=== PATIENT | female | born 1985 | race Caucasian/White ===

== ENCOUNTER 2019-01-10 19:45 | Emergency (ER) | payer OTHER ==
[2019-01-10] MEDS ORDERED: AMOXIL/CLAVULANATE 400/5 ML PDR PO ONE (21:34)
[2019-01-10] MEDS ORDERED: APAP/HYDROCODONE 1 EACH TABLET PO PRN (21:36)
[2019-01-10] MEDS ORDERED: APAP/HYDROCODONE 1 EACH TABLET ONE (21:48)
[2019-01-10] MEDS ORDERED: AUGMENTIN(FRIDGE) 400 MG/5 ML ONE (21:49)
== END 2019-01-10 22:00 | disposition home or self-care (01) | DRG 159 ==
LOC: ED 19:45
DX: K08.89 Other specified disorders of teeth and supporting structures (principal)
CPT/HCPCS: 99282; A9270-GY